=== PATIENT | male | born 1950 | race Caucasian/White ===

== ENCOUNTER → 2017-01-16 | Outpatient (CLI) | payer MEDICARE, BC, OTHER ==
[~2017-01-16] MED LIST: *BLDWK7; ASP81 PO; ATENOLOL50 PO; BEXTRA PO; FELDENE20 PO; HYDROCHL12 PO; ISOVUE-370 76% 100ML VIAL (Q9967) As Ordered ONE; LISINOPR10 PO; LISINOPR20 PO; OMEPRAZ40 PO; PRIL40CA; PRIN5TAB; ZESTORET20 PO; [UNRECOGNIZED DRUG - CODE] PO; [UNRECOGNIZED DRUG - CODE] PO; [UNRECOGNIZED DRUG - REMARK] -
--- NOTE | 2017-01-16 17:18 | REP ---
CT NECK WITH CONTRAST: HISTORY: Swelling. CONTRAST: Isovue-370, 75 mL A BB was placed on the right lateral neck at the C2 level. The naso-, toña- and hypopharynx, larynx and subglottic trachea are normal in appearance. A well circumscribed mass with minimal homogeneous enhancement is present inferomedial to and contiguous with the right parotid gland. The mass measures 1.7 cm in transverse x 2.1 cm by AP x 2.2 cm in cephalocaudal dimensions. The left parotid, submandibular and thyroid glands are normal. Small lymph nodes, less than 1 cm in size are present in the internal jugular chains, posterior triangles, submandibular and submental areas. Atherosclerotic calcification is present at the carotid bifurcations. Degenerative change is present in the cervical spine. The lung apices are clear. A retention cyst or polyp is present in the right maxillary sinus. Minimal mucosal thickening is present in the left maxillary sinus. IMPRESSION: There is a well circumscribed enhancing mass inferomedial to and contiguous with the right parotid gland. This may represent an enlarged lymph node or an exophytic parotid gland tumor such as a pleomorphic adenoma or carcinoma. Signed by Bryn Rhodes MD 01/17/2017 08:02 A
== END ==
LOC: M RAD 16:07
PROVIDERS: ATTEND Otolaryngology
DX: R22.1 Localized swelling, mass and lump, neck (principal)
CPT/HCPCS: 70491; Q9967

== ENCOUNTER → 2017-01-22 | Outpatient (CLI) | payer MEDICARE, BC, OTHER ==
[~2017-01-22] MED LIST changes: -ISOVUE-370 76% 100ML VIAL (Q9967) As Ordered ONE
[2017-01-22 12:57] LABS: INR 0.96
== END ==
LOC: M LAB 12:31
PROVIDERS: ATTEND Otolaryngology
DX: R22.1 Localized swelling, mass and lump, neck (principal); D37.030 Neoplasm of uncertain behavior of the parotid salivary glands

== ENCOUNTER → 2017-01-30 | Outpatient (CLI) | payer MEDICARE, BC, OTHER ==
[~2017-01-30] MED LIST changes: +LIDOCAINE 1% MDV 20ML VIAL As Ordered ONE
--- NOTE | 2017-01-30 13:53 | REP ---
ULTRASOUND GUIDED RIGHT NECK MASS BIOPSY: The procedure was performed under the direct supervision of Dr. Laurent. The patient has a history of a well-circumscribed enhancing mass inferomedial to and contiguous with the right parotid gland seen on a previous CT scan dated 01/16/2017. The risks and benefits of the procedure were explained to the patient and informed consent was obtained. The right parotid gland mass was localized using ultrasound guidance. The skin was prepped and draped in a sterile fashion. 1% Xylocaine was used as a local anesthetic. Using ultrasound guidance eight fine needle aspirations were obtained using 25-gauge needles. The patient tolerated the procedure well and there no immediate complications. After the appropriate amount of monitored convalescence the patient was discharged from the department. Reviewed by TREVOR Arroyo 01/30/2017 02:20 PEdited and Signed by Jacob Laurent MD 01/30/2017 05:08 P
== END ==
LOC: M RADPRO 10:32
PROVIDERS: ATTEND Otolaryngology
DX: D36.7 Benign neoplasm of other specified sites (principal); Z79.899 Other long term (current) drug therapy; Z79.82 Long term (current) use of aspirin; Z87.891 Personal history of nicotine dependence

== ENCOUNTER 2017-04-05 09:48 | Day surgery (SDC) | payer MEDICARE, BC, OTHER ==
[~2017-04-05] VITALS: Ht 180.3 cm; Wt 145.1 kg
[~2017-04-05 09:48] MED LIST changes: +ASPI81TA85 PO; -LIDOCAINE 1% MDV 20ML VIAL As Ordered ONE; +MENSTAB PO; +METO37.5 PO
[2017-04-05] MEDS ORDERED: dexameTHASONE 4 MG/ML 1ML VIAL (J1100) IV ONE (10:00)
[2017-04-05] MEDS ORDERED: ROCURONIUM BROMIDE 50 MG/5 ML VIAL/SYRINGE As Ordered ONE (10:01)
[2017-04-05] MEDS ORDERED: ONDANSETRON 4MG/2ML VIAL (J2405) As Ordered ONE ×2 (10:01→14:49)
[2017-04-05] MEDS ORDERED: PROPOFOL 200 MG/20 ML VIAL As Ordered ONE ×2 (10:01→12:11)
[2017-04-05] MEDS ORDERED: fentaNYL 100 MCG/2 ML INJECTION (J3010) As Ordered ONE ×2 (10:01→12:24)
[2017-04-05] MEDS ORDERED: LIDOCAINE 2% INJ 100 MG/5 ML SDV (FOR ANES.) As Ordered ONE (10:01)
[2017-04-05] MEDS ORDERED: MIDAZOLAM INJ 2 MG/2 ML VIAL (J2250) As Ordered ONE (10:01)
[2017-04-05] MEDS ORDERED: LR 1,000 ML IV SCH ×3 (10:15→15:45)
[2017-04-05] MEDS ORDERED: BACITRACIN OINT 30GM As Ordered ONE ×2 (11:14→14:19)
[2017-04-05] MEDS ORDERED: LIDOCAINE W/EPINEPHRINE 1% 20ML VIAL As Ordered ONE (11:14)
[2017-04-05] MEDS ORDERED: HYDROmorphone HCL 2 MG/ML 1ML VIAL (J1170) As Ordered ONE (11:35)
[2017-04-05] MEDS ORDERED: PERCOCET 5MG/325MG TAB PO PRN (15:30)
[2017-04-05] MEDS ORDERED: fentaNYL 100 MCG/2 ML INJECTION (J3010) IV PRN (15:30)
[2017-04-05] MEDS ORDERED: MORPHINE 2 MG/ML 1ML SYRINGE IV PRN (15:30)
[2017-04-05] MEDS ORDERED: ONDANSETRON 4MG/2ML VIAL (J2405) IV PRN (15:30)
[2017-04-05] MEDS: LR 1,000 ML IV SCH (17:00)
[2017-04-05 17:45] VITALS: BP 147/81
[2017-04-05 18:45] VITALS: BP 144/76
[2017-04-05 19:45] VITALS: BP 144/67
[2017-04-05 20:45] VITALS: BP 146/68
[2017-04-05] MEDS: AUGMENTIN 875 MG TAB PO SCH (21:50)
[2017-04-05] MEDS: METOPROLOL TART 12.5 MG PER 1/2 TAB PO SCH (21:50)
[2017-04-05 22:00] VITALS: BP 146/69
[2017-04-06 02:00] VITALS: BP 121/65
[2017-04-06] MEDS: LR 1,000 ML IV SCH (02:48)
[2017-04-06 06:00] VITALS: BP 128/85
[2017-04-06] MEDS ORDERED: MULTIVITAMINS/MINERALS THERAP 1 TAB PO SCH (09:00)
[2017-04-06 09:41] VITALS: BP 128/85
[2017-04-06] MEDS: AUGMENTIN 875 MG TAB PO SCH (09:41)
[2017-04-06] MEDS: METOPROLOL TART 12.5 MG PER 1/2 TAB PO SCH (09:41)
[2017-04-06] MEDS ORDERED: AUGM875T28 PO (12:26)
--- NOTE | 2017-04-12 09:50 | RO ---
DATE OF PROCEDURE: 04/05/2017 PREPROCEDURE DIAGNOSIS: Mass of the right parotid gland. POSTPROCEDURE DIAGNOSIS: Mass of the right parotid gland. PROCEDURE: 1. Right total parotidectomy. 2. Right supraomohyoid neck dissection. 3. Intraoperative facial nerve monitoring. SURGEON: Dr. Kelvin Glaser. ADVERTISING SALES ASSOCIATE: Dr. Ananth Mueller. ANESTHESIA: General without the use of paralytic. CLINICAL PREAMBLE: This 66-year-old man presented to the office with a history of enlarging mass over the tail of the right parotid. He denies facial weakness. Fine needle aspiration of the mass revealed no evidence of malignancy. Management options including surgery listed above have been discussed. The patient understood and consented to the procedure. DESCRIPTION OF PROCEDURE: The patient was identified in preop holding, had the right neck marked and was brought to the operating room in stable condition. In supine position on the operating table, patient received general anesthesia followed by orotracheal intubation without incident. No further paralytic agent was used for the remainder of the case. The test electrodes were then placed over the lip commissure and the right lateral [place] region. The electrodes were then placed over the sternal notch area. The electrodes were then connected to the NIM-3 neural monitor. Good electrical signals were obtained upon tapping of the facial region. The patient was then prepped an draped in the usual fashion for the procedure. The entire right face remained visible throughout the entire case. The right eye was protected using the lubricant and closed using the Tegaderm. The modified Boom incision was outlined over the right preauricular and right upper neck region. The mass was palpated and found to be deep to the right tail of the parotid gland. The proposed incision was infiltrated with 1% lidocaine and 1:100,000 epinephrine. The incision was made through the subcutaneous tissue down to the level of the parotid fascia. The skin flap was developed above the parotid fascia. All the parotid gland and anterior to the mass palpated at the tail of the parotid gland. The right auditory canal was dissected along the cartilaginous portion to the level of the trigger pointer. The right sternocleidomastoid muscle was dissected along the anterior border to allow the identification of the posterior belly of the digastric muscle. The main trunk of the right facial nerve was dissected and identified approximately 1 cm anterior and inferior to the tragal pointer. The additional dissection was carried out to the first bifurcation point. Additional dissection was carried out inferiorly towards the right parotid tail. It was noted that the tumor was deep to the branches of the facial nerve. Careful dissection was carried out to allow mobilization of the lower branches of the facial nerve out from the tumor mass. Additional dissection was carried out in the level I and II of the right upper neck lymph node and fibrofatty tissue to allow complete mobilization of the right parotid tail mass that was extending towards the posterior aspect of the right submandibular gland. A cuff of tissues of at least 1 cm margin was excised along with the tumor mass to insure adequate excision margin. The entire parotid mass was successfully excised en bloc without any spillage of the content of the tumor. Inspection of the upper neck dissection of level II and III show no residual enlarged lymph node, fibrofatty tissues. The facial nerve was found to be stimulated at the end of the body of the case. Hemostasis was achieved using bipolar electrocautery. A 1/4-inch [place] drain was placed into the right parotid bed region. The skin closure was achieved using two-layer closure technique. The deep layer was closed using #3-0 Vicryl. The final skin closure was achieved using #5-0 Prolene. The [place] was secured to the neck using a #5-0 Prolene suture. A mattress suture was placed over the drain site and remained un-knotted. The pressure dressing was applied over the right parotid area with the application of the face life pressure dressing. At the end of the case, sponge and instrument counts were correct. Estimated blood loss of approximately 50 mL. No complications during procedure. General anesthesia was reversed and the patient was extubated and brought to the recovery room in stable condition. In the postoperative area, the patient exhibited full and symmetrical facial motion with no weakness. MTDD
== END 2017-04-06 12:50 | disposition home or self-care (01) ==
LOC: M SDC 09:48 → M MS5PR 16:58 → M SDC 04-06 12:50
PROVIDERS: ATTEND Otolaryngology
DX: D11.9 Benign neoplasm of major salivary gland, unspecified (principal); I10 Essential (primary) hypertension; Z79.82 Long term (current) use of aspirin
CPT/HCPCS: 38700; 42415; 88305; J1100; J1170; J2250; J2405; J3010

== ENCOUNTER → 2021-01-19 | Outpatient (CLI) | payer MEDICARE, BC, OTHER ==
[~2021-01-19] MED LIST changes: -ASPI81TA85 PO; +ASPI81TA86 PO; +AUGM875T28 PO
--- NOTE | 2021-01-19 12:06 | REP ---
INDICATION: SHORTNESS OF BREATH. COMPARISON: Portable examination 10/16/2008 FINDINGS: The superior mediastinal structures are midline. The cardiac silhouette is unremarkable in size, shape, and position. The diaphragmatic surfaces of the lungs are regular, and the costophrenic angles are clear. The pulmonary blanco are clear. The imaged osseous structures are intact. IMPRESSION: There is no acute cardiopulmonary disease. <Electronically signed by Jeremie Ott > 01/19/21 [id number]
== END ==
LOC: M WUC 10:46
PROVIDERS: ATTEND Family Medicine
DX: R06.02 Shortness of breath (principal)

== ENCOUNTER → 2021-05-13 | Outpatient (CLI) | payer MEDICARE, BC, OTHER ==
--- NOTE | 2021-05-16 14:28 | SLEEPCENT ---
DATE: 05/13/2021 ORDERED BY: JEFF Shen Nocturnal polysomnography was performed for evaluation of sleep physiology in this patient with a history of excessive somnolence, snoring, and nonrestorative sleep. Nine hours and 14 minutes of data were reviewed. There were 401.5 minutes of sleep identified. Sleep latency was normal at 95 minutes. REM latency was normal at 141 minutes. Sleep architecture showed fragmentation early. There were three REM cycles later in the study. Overall sleep efficiency was 73.3%. The electrocardiogram showed a sinus rhythm with an average heart rate of 60 beats per minute. Rate ranged 55-65. Unifocal PVCs were noted. EEG showed normal waveforms for wake and sleep. There were 251 respiratory events identified of 10 seconds in duration or greater for an apnea-hypopnea index of 37.5. The events were obstructive, not exclusive to sleep stage nor position. Arousals from respiratory events occurred 7.2 times per hour, and oxygen desaturations were seen into the low 80s. There was some minor activity in the limb leads but arousal events from limbs were few. IMPRESSIONS: Obstructive sleep apnea syndrome (G47.33). Apnea-hypopnea index 37.5. RECOMMENDATION: The patient should be encouraged to return to [facility]. In the interim, alcohol and sedative avoidance should be practiced and caution exercised during the operation of motor vehicles. cc: EDUAR IZQUIERDO MD
== END ==
LOC: M SLEEP 20:00
PROVIDERS: ATTEND Physician Assistant
DX: G47.33 Obstructive sleep apnea (adult) (pediatric) (principal)

== ENCOUNTER → 2021-06-16 | Outpatient (CLI) | payer MEDICARE, BC, OTHER ==
[~2021-06-16] MED LIST changes: +METHACHOLINE KIT (J7674) INH ONE
--- NOTE | 2021-06-16 09:56 | PFTRPT ---
Site: [facility], [address] [place], [address] ID: [id number] Name: ANGELINE GABRIEL Visit Date: 06/16/2021 Second ID: [id number] Referring Doctor: MEGAN Sparrow, Suzi Hyde Reviewing Doctor: Dennys Simons MD Livestock Breeder: Concepción CAT RRT Age: 70 : 1950 Sex: Male Race: Height: 72.00 Inches Weight: 350.00 Lbs BSA: 2.70 Order IDs: [id number] Requested Test(s): <RESP-PFT.METH CHAL> Diagnosis: R06.00 puffs of albuterol for post bronchodilator. Review Status: Not Reviewed Pre-Bronch Post-Bronch Pred Actual %Pred Actual %Chng SPIROMETRY FVC (L) 4.66 3.37 72 3.32 -1 FEV1 (L) 3.40 2.64 77 2.56 -3 FEV1/FVC (%) 73 78 107 77 -1 FEF 25% (L/sec) 8.89 5.85 65 5.35 -8 FEF 50% (L/sec) 5.32 3.36 63 3.25 -3 FEF 75% (L/sec) 1.51 0.81 53 0.69 -14 FEF 25-75% (L/sec) 2.51 2.39 95 2.09 -12 FEF Max (L/sec) 8.51 6.08 71 5.82 -4 FIVC (L) 3.20 3.15 -1 FIF 50% (L/sec) 4.38 2.05 46 1.81 -11 FIF Max (L/sec) 2.51 1.95 -22 Expiratory Time (sec) 7.39 7.29 -1 Back Extrap Vol (L) 0.10 0.09 -12 Time To FEFmax (sec) 0.093 0.084 -10
== END ==
LOC: M CARPUL 08:54
PROVIDERS: ATTEND Physician Assistant
DX: R06.00 Dyspnea, unspecified (principal)
CPT/HCPCS: 94070; 95070; J7674

== ENCOUNTER → 2021-07-01 | Outpatient (CLI) | payer MEDICARE, BC, OTHER ==
[~2021-07-01] MED LIST changes: -METHACHOLINE KIT (J7674) INH ONE
--- NOTE | 2021-07-04 18:14 | SLEEPCENT ---
DATE: 07/01/2021 ORDERED BY: JEFF Shen Nocturnal polysomnography was performed for the titration of pressure therapy in this patient with severe obstructive sleep apnea syndrome, apnea-hypopnea index 37.5. For testing, a ResMed Quattro full face mask of large size was used, 4 cm of water pressure were applied to the circuit and the lights were extinguished. Eight hours and 28 minutes of data were reviewed. There were 319 minutes of sleep identified. Sleep latency was mildly prolonged at 48.5 minutes. REM latency was normal at 105.5 minutes. Sleep architecture was good with three REM cycles. Overall sleep efficiency was 63.3%. The electrocardiogram showed a sinus rhythm with an average heart rate of 60 beats per minute. EEG showed normal waveforms for wake and sleep. Respiratory events were fully palliated with CPAP at a pressure of +8. Significant persistent activity was seen in the limb leads. Limb movement arousal index was only 6. IMPRESSION: Obstructive sleep apnea syndrome (G47.33). RECOMMENDATION: Nightly use of pressure therapy 8 cm of water. cc: EDUAR IZQUIERDO MD
== END ==
LOC: M SLEEP 20:00
PROVIDERS: ATTEND Physician Assistant
DX: G47.33 Obstructive sleep apnea (adult) (pediatric) (principal)

== ENCOUNTER → 2022-07-27 | Outpatient (CLI) | payer MEDICARE, BC, OTHER | LOC: M SLEEP 08:22 | PROVIDERS: ATTEND Physician Assistant | DX: G47.33 Obstructive sleep apnea (adult) (pediatric) (principal) ==

== ENCOUNTER 2022-09-06 05:39 | Emergency (ER) | payer MEDICARE, BC, OTHER ==
[~2022-09-06] VITALS: Ht 180.3 cm; Wt 159.1 kg
[2022-09-06 07:57] VITALS: BP 134/75
== END 2022-09-06 08:03 | disposition home or self-care (01) ==
LOC: M ED 05:39
DX: S00.03XA Contusion of scalp, initial encounter (principal); W06.XXXA Fall from bed, initial encounter; I10 Essential (primary) hypertension; Z87.891 Personal history of nicotine dependence; Z98.84 Bariatric surgery status; Z79.82 Long term (current) use of aspirin; Z79.810 Long term (current) use of selective estrogen receptor modulators (SERMs); Z79.899 Other long term (current) drug therapy

== ENCOUNTER → 2024-05-22 | Outpatient (CLI) | payer MEDICARE, BC | LOC: M PLARAD 10:12 | PROVIDERS: ATTEND Student in an Organized Health Care Education/Training Program | DX: I67.1 Cerebral aneurysm, nonruptured (principal) ==

== ENCOUNTER 2024-10-29 09:32 | Day surgery (SDC) | payer MEDICARE, BC ==
[~2024-10-29] VITALS: Ht 180.3 cm; Wt 160.9 kg
[~2024-10-29 09:32] MED LIST changes: +AMLO1TAB24 PO; +ASPI81TA26 PO; +BIOFTAB PO; +EQ A10TA2 PO; +EQL50TAB2 PO; +FLUO-365 PO; +FLUT1BLS3 IH; +IMMU1CHW PO; +IRBE150T27 PO; +THERTAB52 PO; +VENTAER INH; +[UNRECOGNIZED DRUG - OTHER]
[2024-10-29 09:52] VITALS: TEMP 96.6
[2024-10-29 11:45] VITALS: BP 126/61; O2SAT 96
== END 2024-10-29 11:50 | disposition home or self-care (01) ==
LOC: M OPP 09:32
PROVIDERS: ATTEND Surgery
DX: Z12.11 Encounter for screening for malignant neoplasm of colon (principal); R19.5 Other fecal abnormalities; D12.6 Benign neoplasm of colon, unspecified; K57.30 Diverticulosis of large intestine without perforation or abscess without bleeding; K64.8 Other hemorrhoids; G47.30 Sleep apnea, unspecified; Z79.82 Long term (current) use of aspirin; Z79.51 Long term (current) use of inhaled steroids; Z79.899 Other long term (current) drug therapy; J45.909 Unspecified asthma, uncomplicated; Z98.84 Bariatric surgery status